=== PATIENT | male | born 1985 | race Asian ===

== ENCOUNTER 2018-12-09 12:52 | Emergency (ER) | payer SELFPAY ==
--- NOTE | 2018-12-09 13:17 | RAD ---
FRadiograph left ankle 3 views: HISTORY: 33-year-old male status post acute traumatic injury to the left ankle FINDINGS: Ankle mortise is congruent. No fracture, subluxation, or any other osseous abnormality IMPRESSION: Negative
== END 2018-12-09 14:25 | disposition home or self-care (01) ==
LOC: ERS 12:52
DX: S86.012A Strain of left Achilles tendon, initial encounter (principal); Z87.891 Personal history of nicotine dependence; X50.9XXA Other and unspecified overexertion or strenuous movements or postures, initial encounter; Y93.67 Activity, basketball
CPT/HCPCS: 29515

== ENCOUNTER 2018-12-13 00:02 | Outpatient (CLI) | payer BC ==
[2018-12-13 15:30] LABS: Mean Corpuscular HGB CONC 34.5 g/dL (32.0-36.0); Mean Corpuscular Hemoglobin 31.3 pg (27.0-31.0); Mean Corpuscular Volume 90.6 fL (78.0-98.0); Mean Platelet Volume 7.1 fL (7.4-10.4); Platelet Count 213 thou/uL (130-400); RBC Distribution Width 10.7 % (11.5-14.5); Red Blood Cell (RBC) Count 5.12 mill/uL (4.70-6.10); White Blood Cell (WBC) Count 7.3 thou/uL (4.8-10.8)
== END 2018-12-13 00:03 | disposition home or self-care (01) ==
LOC: LABBT 00:02
PROVIDERS: ATTEND Orthopaedic Surgery
DX: Z01.812 Encounter for preprocedural laboratory examination (principal); S86.012A Strain of left Achilles tendon, initial encounter
CPT/HCPCS: 85027

== ENCOUNTER 2018-12-14 08:59 | Day surgery (SDC) | payer BC ==
[2018-12-13 14:56] VITALS: BMI 29.5
[2018-12-14] MEDS ORDERED: Fentanyl 100 MCG/2 ML VIAL ONE ×3 (11:09→12:47)
[2018-12-14] MEDS ORDERED: Bupivacaine/Epinephrine 0.25% 30 ML VIAL ONE (11:34)
[2018-12-14] MEDS ORDERED: Lidocaine 1% PF 5 ML VIAL ONE (15:41)
[2018-12-14] MEDS ORDERED: Glycopyrrolate 0.2 MG/ML 5 ML SYRINGE ONE (15:41)
[2018-12-14] MEDS ORDERED: Ondansetron PF 4 MG/2 ML Vial ONE (15:41)
[2018-12-14] MEDS ORDERED: Rocuronium Bromide 10 MG/ML (10ML VIAL) ONE (15:41)
[2018-12-14] MEDS ORDERED: PROPOFOL 200 MG/20 ML VIAL ONE (15:41)
--- NOTE | 2018-12-15 06:07 | OP ---
DATE OF PROCEDURE: 12/14/2018 PREOPERATIVE DIAGNOSIS: Left Achilles rupture. POSTOPERATIVE DIAGNOSIS: Left Achilles rupture. PROCEDURE PERFORMED: Left Achilles repair. PL[employer]PERATIONS WORKER: Zak James. ANESTHESIA: Fortunato Galloway The patient received a general endotracheal intubation with 10 mL of 0.25% Marcaine with epinephrine. ESTIMATED BLOOD LOSS: 30 mL. TOURNIQUET TIME: 32 minutes at 300 mmHg. ANTIBIOTICS: Ancef 2 g. IMPLANTS: None. COMPLICATIONS: None. HISTORY OF PRESENT ILLNESS: Mr. Patel is a pleasant 33-year-old male status post left Achilles rupture. The patient was playing basketball, came up, felt immediate pop on 12/09/2018. The patient was seen in inpatient clinic. I discussed with the patient risks and benefits of different surgeries and the risks of conservative and operative management. I discussed the risks and benefits of both. The patient elected for operative fixation. I discussed risks and benefits of surgery to include pain, scar, bleeding, infection, damage to vital structures, decreased range of motion, need for further surgeries, failure of repair, tendinopathy, loss of life or limb. The patient understood the risks and benefits and elected to proceed. DESCRIPTION OF PROCEDURE: After time-out was performed designating the patient's left lower extremity as the operative site based on site, consents, and markings, tourniquet was brought up and left for a total of 32 minutes. I made an incision down through skin, medial aspect of the tendon. I used blunt dissection proximally to ensure no damage to the sural nerve. We found the defect, came down to the paratenon, found the patient's plantaris. We cleaned off both edges of the tendon, washed out the tendon, and started with a #2 Ethibond and put running Krackow stitches up and down both with 2 limbs on each proximal and distal segment. I used straight Devendra needle to pass through the tendon with proximal limbs distally and the distal limbs proximally, tied a knot with the patient in plantar flexion. We then used those limbs, passed them from posterior to anterior and passed and tied another knot with our 2 limbs and proximal distal, cut the knots so that they were deep to the skin. We then used #0 Vicryl stitch, epitendinous suture, running suture around the tendon, cut the stitch. We then washed. We closed with 0, 2-0, and 3-0 nylon. The patient received 10 mL of 0.25% Marcaine with epinephrine. Posterior splint was placed with the patient in near neutral position. He will follow up in clinic in about 10 to 14 days, will be transitioned to a boot and stay nonweightbearing for 4 weeks. Job ID: [id number]
== END 2018-12-14 14:16 | disposition home or self-care (01) ==
LOC: SDC 08:59
PROVIDERS: ATTEND Orthopaedic Surgery
PROC: 0LQP0ZZ Repair Left Lower Leg Tendon, Open Approach (ICD-10-PCS; principal; 2018-12-14)
DX: S86.012A Strain of left Achilles tendon, initial encounter (principal); X58.XXXA Exposure to other specified factors, initial encounter; Y93.67 Activity, basketball
CPT/HCPCS: J0690; J2001; J2405; J2704; J3010